=== PATIENT | female | born 1985 | race Two or more races ===

== ENCOUNTER 2020-09-11 05:53 | Day surgery (SDC) | payer OTHER | END 2020-09-11 09:45 | disposition home or self-care (01) | LOC: AMB-ENDOS 05:53 | PROVIDERS: ATTEND Surgery | DX: K29.50 Unspecified chronic gastritis without bleeding (principal); K44.9 Diaphragmatic hernia without obstruction or gangrene; Z20.822 Contact with and (suspected) exposure to COVID-19 ==

== ENCOUNTER 2020-09-29 08:08 | Outpatient (CLI) | payer OTHER | END 2020-09-29 08:32 | disposition home or self-care (01) | LOC: RX STUDY 08:08 | PROVIDERS: ATTEND Surgery | DX: E66.01 Morbid (severe) obesity due to excess calories (principal); R00.0 Tachycardia, unspecified; I10 Essential (primary) hypertension; R10.13 Epigastric pain; K21.9 Gastro-esophageal reflux disease without esophagitis ==

== ENCOUNTER → 2020-09-29 10:24 | Outpatient (CLI) | payer OTHER | END | disposition home or self-care (01) | LOC: EKG 10:24 | PROVIDERS: ATTEND Surgery | DX: I10 Essential (primary) hypertension (principal) ==

== ENCOUNTER 2020-10-03 08:57 | Outpatient (CLI) | payer OTHER | END 2020-10-03 09:27 | disposition home or self-care (01) | LOC: NUCLEAR 08:57 | PROVIDERS: ATTEND Surgery | DX: R00.0 Tachycardia, unspecified (principal); E66.01 Morbid (severe) obesity due to excess calories; I10 Essential (primary) hypertension ==

== ENCOUNTER 2020-10-07 08:54 | Outpatient (CLI) | payer OTHER | END 2020-10-07 09:03 | disposition home or self-care (01) | LOC: SONOGRAMA 08:54 | PROVIDERS: ATTEND Surgery | DX: R10.31 Right lower quadrant pain (principal); E66.01 Morbid (severe) obesity due to excess calories ==

== ENCOUNTER 2021-12-17 09:14 | Outpatient (CLI) | payer OTHER | END 2021-12-17 09:26 | disposition home or self-care (01) | LOC: RX STUDY 09:14 | PROVIDERS: ATTEND Specialist | DX: O00.109 Unspecified tubal pregnancy without intrauterine pregnancy (principal) ==

== ENCOUNTER 2022-04-10 11:12 | Emergency (ER) | payer OTHER ==
[~2022-04-10] VITALS: Ht 160 cm; Wt 78.5 kg
[2022-04-10] MEDS ORDERED: LEVOTHYROXINE25 MCG PO (11:27)
== END 2022-04-10 17:30 | disposition home or self-care (01) ==
LOC: ER 11:12
DX: O26.891 Other specified pregnancy related conditions, first trimester (principal); Z3A.10 10 weeks gestation of pregnancy; K29.50 Unspecified chronic gastritis without bleeding; R68.89 Other general symptoms and signs; Z20.822 Contact with and (suspected) exposure to COVID-19

== ENCOUNTER → 2022-06-22 | Outpatient (CLI) | payer OTHER ==
[~2022-06-22] MED LIST: LEVOTHYROXINE25 MCG PO
== END | disposition home or self-care (01) ==
LOC: PRENATAL 07:57
PROVIDERS: ATTEND Obstetrics & Gynecology Maternal & Fetal Medicine
DX: O35.9XX0 Maternal care for (suspected) fetal abnormality and damage, unspecified, not applicable or unspecified (principal); O35.3XX0 Maternal care for (suspected) damage to fetus from viral disease in mother, not applicable or unspecified; O09.519 Supervision of elderly primigravida, unspecified trimester; O99.280 Endocrine, nutritional and metabolic diseases complicating pregnancy, unspecified trimester; O09.819 Supervision of pregnancy resulting from assisted reproductive technology, unspecified trimester; Z3A.20 20 weeks gestation of pregnancy

== ENCOUNTER 2022-09-10 08:11 | Outpatient (CLI) | payer OTHER | END 2022-09-10 09:32 | disposition home or self-care (01) | LOC: PRENATAL 08:11 | PROVIDERS: ATTEND Obstetrics & Gynecology Maternal & Fetal Medicine | DX: O26.849 Uterine size-date discrepancy, unspecified trimester (principal); O09.519 Supervision of elderly primigravida, unspecified trimester; O99.280 Endocrine, nutritional and metabolic diseases complicating pregnancy, unspecified trimester; O09.819 Supervision of pregnancy resulting from assisted reproductive technology, unspecified trimester; Z3A.31 31 weeks gestation of pregnancy ==

== ENCOUNTER 2022-10-21 22:24 | Emergency (ER) | payer OTHER ==
[~2022-10-21] VITALS: Ht 160 cm; Wt 89.4 kg
[2022-10-21] MEDS ORDERED: PRENA1 CHEW TA1.4 MG PO (22:40)
[2022-10-22] MEDS ORDERED: ZYRTEC10 M3 PO (01:41)
[2022-10-22] MEDS ORDERED: DUI500 PO (01:41)
[2022-10-22] MEDS ORDERED: FLONASE16 GM NASAL (01:41)
== END 2022-10-22 01:48 | disposition home or self-care (01) ==
LOC: ER 22:24
DX: O26.893 Other specified pregnancy related conditions, third trimester (principal); Z3A.28 28 weeks gestation of pregnancy; J32.8 Other chronic sinusitis; Z20.822 Contact with and (suspected) exposure to COVID-19

== ENCOUNTER 2022-10-25 15:50 | Inpatient (IN) | payer OTHER ==
[~2022-10-25] VITALS: Ht 160 cm; Wt 87.5 kg
[~2022-10-25 15:50] MED LIST changes: +DUI500 PO; +FLONASE16 GM NASAL; +PRENA1 CHEW TA1.4 MG PO; +ZYRTEC10 M3 PO
== END 2022-10-28 13:57 | disposition home or self-care (01) | DRG 807 ==
LOC: LDR 15:50 → OB/GYN 15:50
PROVIDERS: ADMIT Obstetrics & Gynecology; ATTEND Obstetrics & Gynecology
PROC: 3E0P7VZ Introduction of Hormone into Female Reproductive, Via Natural or Artificial Opening (ICD-10-PCS; 2022-10-25)
PROC: 4A1HXCZ Monitoring of Products of Conception, Cardiac Rate, External Approach (ICD-10-PCS; 2022-10-25)
PROC: 10E0XZZ Delivery of Products of Conception, External Approach (ICD-10-PCS; principal; 2022-10-26)
PROC: 0KQM0ZZ Repair Perineum Muscle, Open Approach (ICD-10-PCS; 2022-10-26)
PROC: 3E033VJ Introduction of Other Hormone into Peripheral Vein, Percutaneous Approach (ICD-10-PCS; 2022-10-26)
DX: O70.1 Second degree perineal laceration during delivery (principal); Z37.0 Single live birth; Z3A.38 38 weeks gestation of pregnancy; Z20.822 Contact with and (suspected) exposure to COVID-19